=== PATIENT | female | born 1970 | race Caucasian/White ===

== ENCOUNTER 2016-11-27 19:50 | Emergency (ER) | payer MEDICAID, MEDICARE ==
[~2016-11-27] VITALS: Ht 152.4 cm; Wt 63.0 kg
[2016-11-27 19:55] VITALS: BP 129/73
== END 2016-11-28 02:15 | disposition left against medical advice (07) ==
LOC: ER 20:47
DX: R51 Headache (principal); Z53.21 Procedure and treatment not carried out due to patient leaving prior to being seen by health care provider